=== PATIENT | female | born 1985 | race Caucasian/White ===

== ENCOUNTER 2021-09-30 08:09 | Outpatient (CLI) | payer OTHER, MEDICAID, SELFPAY ==
--- NOTE | ~2021-09-30 | US_ITS ---
EXAMINATION: US abdomen complete EXAM DATE: 09/30/2021 08:47 INDICATION: ELIZABETH . TECHNIQUE: Multiple grayscale and Doppler images of the complete abdomen were obtained (by a technolo gist who performed the scan) and subsequently reviewed. There is no prior study for comparison. FINDINGS: The abdominal aorta is normal in caliber. Visualized portion IVC is patent. The pancreatic head a nd body are normal in appearance. The pancreatic tail is not visualized. There is echogenic liver parenchyma, hepatic steatosis. There are no focal liver lesions identified. There is no evidence of intrahepatic biliary duct dilation. Portal venous flow was seen in the he patopedal, normal direction and has normal Doppler waveform. Common bile duct measures 4 mm, which is normal. The gallbladder wall is normal in thickness, with ex pected amount of distention. No sonographic evidence of pericholecystic fluid. There is cholelithia sis. Technologist performing exam reports patient did not demonstrate sonographic Strange's sign. P giorgi note that this sign is less reliable in patients who have received pain medication. Right kidney: There is normal contour and echogenicity. It measures 13.0 x 4.5 x 4.9 centimeters. There are no focal renal lesions identified. There is no hydronephrosis. Left kidney: There is normal contour and echogenicity. It measures 11.4 x 5.5 x 4.8 centimeters. T here are no focal renal lesions identified. There is no hydronephrosis. The spleen measures 12 centimeters and is morphologically normal. IMPRESSION: Hepatic steatosis. Reviewed, dictated and finalized at location B. R ERECTOR HELPER IMPRESSION: Hepatic steatosis.
== END 2021-09-30 08:10 | disposition home or self-care (01) ==
PROVIDERS: PCP Family Medicine; Visit Provider Family Medicine
DX: K75.81 Nonalcoholic steatohepatitis (NASH) (principal); E66.01 Morbid (severe) obesity due to excess calories
CPT/HCPCS: 76700

== ENCOUNTER 2021-10-14 09:43 | Outpatient (CLI) | payer OTHER, MEDICAID, SELFPAY ==
--- NOTE | 2021-10-14 16:06 | WPDPFTINT ---
PFT Procedure Performed PFT Procedure Performed Plethysmography (Lung Vol) Diffusing Cap (DLCO) Flow Vol Loop Spirometry w/o Bronchodil PFT Interpretation Lung volumes were measured with the body plethysmography method. Lung volumes are unremarkable. Spirometry showed normal expiratory flow rates and a normal FEV1 to FVC ratio of 85%. Lung diffusion capacity is within the normal range at 81% predicted. The flow volume loop is unremarkable. Impression: Spirometry, lung volumes, and lung diffusion capacity all within the normal range.
== END 2021-10-14 09:44 | disposition home or self-care (01) ==
LOC: ANHPFT 09:46
PROVIDERS: PCP Family Medicine; Visit Provider Family Medicine
DX: G47.33 Obstructive sleep apnea (adult) (pediatric) (principal)
CPT/HCPCS: 94375; 94726; 94729